=== PATIENT | female | born 1980 | race Caucasian/White ===

== ENCOUNTER 2020-11-04 09:06 | Emergency (ER) | payer OTHER ==
[~2020-11-04] VITALS: Ht 177.8 cm; Wt 78.7 kg
[2020-11-04 09:08] VITALS: BP 132/81
--- NOTE | 2020-11-04 10:56 | NUR ---
overweaver note: Pt to room from lobby.
[2020-11-04] MEDS ORDERED: LIDOCAINE-MPF 1%, 5ML ONE (11:20)
--- NOTE | 2020-11-04 11:20 | NUR ---
I&D TRAY AT BS, LIDOCAINE ON CHART.
--- NOTE | 2020-11-04 12:41 | NUR ---
XR READ BACK, PT FOR RECHECK.
--- NOTE | 2020-11-04 13:01 | NUR ---
XEROFORM AND BANDAID PLACED. PT GIVEN ADDITIONAL DRESSINGS FOR HOME.
== END 2020-11-04 13:04 | disposition home or self-care (01) ==
LOC: ED 11:50
DX: S90.111A Contusion of right great toe without damage to nail, initial encounter (principal); S91.201A Unspecified open wound of right great toe with damage to nail, initial encounter; X58.XXXA Exposure to other specified factors, initial encounter; Y93.89 Activity, other specified; Y92.009 Unspecified place in unspecified non-institutional (private) residence as the place of occurrence of the external cause; Y99.8 Other external cause status
CPT/HCPCS: 11730; 99284